=== PATIENT | male | born 1945 | race Caucasian/White ===

== ENCOUNTER 2018-10-16 11:52 | Inpatient (IN) | payer MEDICARE ==
[~2018-10-16] VITALS: Ht 177.8 cm; Wt 77.1 kg
[2018-10-16] MEDS: SODIUM CHLORIDE 0.9% 1000ML 1,000 ML IV SCH ×2 (00:12→18:03)
[2018-10-16] MEDS ORDERED: SODIUM CHLORIDE 0.9% 1000ML 2,000 ML ONE (12:11)
[2018-10-16] MEDS ORDERED: SODIUM CHLORIDE 0.9% 1000ML 1,000 ML IV STA (12:27)
[2018-10-16] MEDS ORDERED: SODIUM CHLORIDE 0.9% 1000ML 1,000 ML IV ONE ×2 (12:30)
[2018-10-16 12:43] LABS: BASOPHILS # (AUTO) 0.1 (0.0-0.1); BASOPHILS % 0.2 % (0.0-1.0); EOSINOPHILS # (AUTO) 0.1 (0.0-0.4); EOSINOPHILS % 0.1 % (0.0-6.0); HEMATOCRIT 39.3 % (38.2-49.6); LYMPHOCYTES # (AUTO) 8.6 (1.0-3.2); LYMPHOCYTES % 22.1 % (18.0-39.1); MEAN CORPUSCULAR HEMOGLOBIN 30.7 pg (28-32); MEAN CORPUSCULAR HGB CONC 33.1 g/dL (31-35); MEAN CORPUSCULAR VOLUME 92.9 fL (81-99); MONOCYTES # (AUTO) 14.8 (0.2-0.8); MONOCYTES % 38.1 % (4.4-11.3); NEUTROPHILS # (AUTO) 14.4 (2.1-6.9); NEUTROPHILS % 37.1 % (38.7-80.0); PLATELET COUNT 226 x10e3/uL (140-360); RED BLOOD COUNT 4.23 x10e6/uL (4.3-5.7); RED CELL DISTRIBUTION WIDTH 17.7 % (11.7-14.4)
--- NOTE | 2018-10-16 12:45 | Diagnostic Imaging Report ---
EXAMINATION: CHEST SINGLE (PORTABLE) INDICATION: Altered mental status, fever. COMPARISON: None FINDINGS: The right lung apex is obscured by EKG lead. TUBES and LINES: None. LUNGS: Low lung volumes. There are patchy opacities in the right lower lung. No evidence of pulmonary edema. PLEURA: No pleural effusion or pneumothorax. HEART AND MEDIASTINUM: The cardiomediastinal silhouette is unremarkable. BONES AND SOFT TISSUES: No acute osseous lesion. Soft tissues are unremarkable. UPPER ABDOMEN: No free air under the diaphragm. IMPRESSION: Low lung volumes with patchy right basilar opacity, which may reflect atelectasis or aspiration in the appropriate clinical setting. Recommend follow-up chest radiograph in 6-8 weeks to assess for resolution. Signed by: Dr. Quita Jordan MD on 10/16/2018 12:42 PM
[2018-10-16 12:52] LABS: INR 1.03
[2018-10-16 12:53] LABS: PARTIAL THROMBOPLASTIN TIME 27.2 seconds (23.8-35.5)
[2018-10-16 13:00] LABS: ALBUMIN 3.7 g/dL (3.5-5.0); ALBUMIN/GLOBULIN RATIO 0.8 (0.8-2.0); ANION GAP 15.6 mmol/L (8-16); CALCIUM 10.2 mg/dL (8.4-10.2); CREATININE, SERUM 1.52 mg/dL (0.72-1.25); POTASSIUM 3.6 mmol/L (3.5-5.1)
[2018-10-16] MEDS ORDERED: VANCOMYCIN 1GM/NS 250 ML 250 ML IV ONE (13:00)
[2018-10-16 13:06] LABS: CREATINE KINASE MB 1.5 ng/mL (0-5.0)
[2018-10-16] MEDS ORDERED: LIDOCAINE JELLY 2% 10ML URO-JET ONE (13:15)
[2018-10-16 13:30] LABS: ACETAMINOPHEN < 3 ug/mL (10-30); SALICYLATE < 5.0 mg/dL (0-30)
[2018-10-16] MEDS: PIPER-TAZ 3.375 GM 50 ML IV SCH ×2 (13:41→18:03)
[2018-10-16 14:29] LABS: STREPTOCOCCUS GRP A ANTIGEN POSITIVE (NEGATIVE)
[2018-10-16 14:29] LABS: BILIRUBIN,URINE NEGATIVE (NEGATIVE); CLARITY,URINE HAZY (CLEAR); COLOR,URINE YELLOW (YELLOW); KETONES,URINE NEGATIVE (NEGATIVE); LEUKOCYTE ESTERASE ,URINE NEGATIVE (NEGATIVE); NITRITE,URINE NEGATIVE (NEGATIVE); PROTEIN,URINE DIPSTICK 2+ (NEGATIVE); URINE UROBILINOGEN 0.2 mg/dL (0.2 - 1)
[2018-10-16 14:31] LABS: AMPHETAMINES SCREEN,URINE NEGATIVE (NEGATIVE); BENZODIAZEPINES SCREEN,URINE POSITIVE (NEGATIVE); PHENCYCLIDINE SCREEN,URINE NEGATIVE (NEGATIVE)
[2018-10-16] MEDS: LEVOFLOXACIN 500MG/D5W 100ML 100 ML IV SCH (14:38)
[2018-10-16 14:42] LABS: INFLUENZAE A&B ANTIGEN (RAPID) NEGATIVE (NEGATIVE)
[2018-10-16] MEDS ORDERED: TUBERCULIN, PPD INJ 5 TU/0.1 ML INJ ID ONE (14:45)
[2018-10-16 14:47] LABS: AMORPHOUS SEDIMENT,URINE MANY (FEW); BACTERIA,URINE MODERATE /HPF; EPITHELIAL CELLS,URINE MODERATE /LPF
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
[2018-10-16] MEDS ORDERED: LORAZEPAM0.5 MG PO (15:04)
[2018-10-16] MEDS ORDERED: QUETIAPINE FUMA50 MG PO (15:04)
[2018-10-16] MEDS ORDERED: VALPROIC A250 MG/5 M PO (15:04)
--- NOTE | 2018-10-16 15:25 | NUR ---
Dr. Frank states patient may go to med surg tele at this time.
[2018-10-16 16:00] VITALS: BP 112/61
--- NOTE | 2018-10-16 16:07 | NUR ---
RECEIVED PT FROM ER. JESSICA. BED AT LOWEST POSITION. BED ALARM IS ON. PT IS CONFUSED AND YELLING. CALL LIGHT WITH IN REACH.
[2018-10-16 16:47] VITALS: BP 112/61
[2018-10-16] MEDS: VALPROATE 250MG/5ML ORAL LIQ 5ml PO SCH ×2 (18:03→22:40)
--- NOTE | 2018-10-16 19:00 | NUR ---
BEDSIDE SHIFT REPORT GIVEN TO INSTRUCTIONAL ASSISTANT RN.
--- NOTE | 2018-10-16 19:28 | NUR ---
Patient received asleep in bed. Arousable by tactile stimuli. No signs of pain or respiratory distress. Fall precautions implemented. Call light within reach.
[2018-10-16 20:00] VITALS: BP 103/58
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
[2018-10-16 21:46] LABS: CREATINE KINASE MB 2.8 ng/mL (0-5.0)
[2018-10-16 23:43] VITALS: BP 116/67
[2018-10-17] VITALS (7 sets, daily range): BP systolic 113–125; BP diastolic 65–71
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
[2018-10-17] MEDS: PIPER-TAZ 3.375 GM 50 ML IV SCH ×4 (00:12→17:05)
[2018-10-17] MEDS ORDERED: TUBERCULIN, PPD INJ 5 TU/0.1 ML INJ ID ONE (04:08)
--- NOTE | 2018-10-17 04:30 | NUR ---
Patient was agitated and combative upon attempting to give Tuberculin PPD injection. Two attempts proved futile.
[2018-10-17] MEDS: SODIUM CHLORIDE 0.9% 1000ML 1,000 ML IV SCH ×2 (05:52→19:00)
--- NOTE | 2018-10-17 07:06 | NUR ---
RECEIVED PATIENT RESTING IN BED. NO ACUTE DISTRESS NOTED. NO S/S OF PAIN NOTED. CALL LIGHT WITHIN REACH. BED IN THE LOWEST POSITION.
--- NOTE | 2018-10-17 07:08 | NUR ---
Walking rounds done. Shift report given to oncoming nurse regarding patient's status.
[2018-10-17] MEDS ORDERED: ACETAMINOPHEN325 M1 PO (07:22)
--- NOTE | 2018-10-17 07:29 | NUR ---
SPOKE TO DR. KHAN IN REGARDS TO NPO ORDER. PER MD LEAVE PATIENT NPO AND ORDER BEDSIDE SWALLOW EVAL AND CONTINUE IV FLUIDS.
[2018-10-17] MEDS: VALPROATE 250MG/5ML ORAL LIQ 5ml PO SCH ×3 (08:54→21:47)
[2018-10-17] MEDS: LEVOFLOXACIN 500MG/D5W 100ML 100 ML IV SCH (08:54)
[2018-10-17] MEDS ORDERED: LORAZEPAM 0.5 MG TAB PO PRN (10:45)
--- NOTE | 2018-10-17 10:59 | NUR ---
TB TEST ADMINISTERED AT THIS TIME TO LEFT FOREARM.
[2018-10-17] MEDS ORDERED: TUBERCULIN, PPD INJ 5 TU/0.1 ML INJ ID NR (11:00)
[2018-10-17 12:00] LABS: BASOPHILS % 0.1 % (0.0-1.0); EOSINOPHILS # (AUTO) 0.1 (0.0-0.4); EOSINOPHILS % 0.3 % (0.0-6.0); HEMOGLOBIN 11.4 g/dL (14.0-18.0); LYMPHOCYTES # (AUTO) 2.5 (1.0-3.2); LYMPHOCYTES % 8.3 % (18.0-39.1); MEAN CORPUSCULAR HEMOGLOBIN 30.6 pg (28-32); MEAN CORPUSCULAR HGB CONC 31.7 g/dL (31-35); MEAN CORPUSCULAR VOLUME 96.8 fL (81-99); MONOCYTES # (AUTO) 10.5 (0.2-0.8); MONOCYTES % 35.1 % (4.4-11.3); NEUTROPHILS # (AUTO) 16.1 (2.1-6.9); NEUTROPHILS % 53.8 % (38.7-80.0); PLATELET COUNT 218 x10e3/uL (140-360); RED BLOOD COUNT 3.72 x10e6/uL (4.3-5.7); RED CELL DISTRIBUTION WIDTH 17.6 % (11.7-14.4)
[2018-10-17 12:25] LABS: CREATINE KINASE MB 3.4 ng/mL (0-5.0)
[2018-10-17 13:00] LABS: ALANINE AMINOTRANSFERASE 14 IU/L (0-55); ALBUMIN 3.3 g/dL (3.5-5.0); ALBUMIN/GLOBULIN RATIO 0.8 (0.8-2.0); ALKALINE PHOSPHATASE 43 IU/L (40-150); ANION GAP 13.7 mmol/L (8-16); BLOOD UREA NITROGEN 13 mg/dL (7-26); BUN/CREATININE RATIO 13 (6-25); CALCIUM 8.6 mg/dL (8.4-10.2); CARBON DIOXIDE 22 mmol/L (22-29); CHLORIDE 109 mmol/L (98-107); CREATININE, SERUM 0.97 mg/dL (0.72-1.25); EST GLOMERULAR FILTRATION RATE > 60 ML/MIN (60-); GLUCOSE 91 mg/dL (74-118); POTASSIUM 3.7 mmol/L (3.5-5.1); SODIUM 141 mmol/L (136-145)
[2018-10-17] MEDS: QUETIAPINE FUMARATE 25 MG TAB PO SCH ×2 (14:01→21:47)
[2018-10-17 14:23] LABS: LYMPHOCYTES % (MANUAL) 16 % (19-48); MONOCYTES % (MANUAL) 26 % (3.4-9.0); NEUTROPHILS % (MANUAL) 58 % (40-74)
[2018-10-17 14:24] LABS: ANISOCYTOSIS S; PLATELET ESTIMATE ADEQUATE; PLATELET MORPHOLOGY COMMENT FEW LARGE; POIKILOCYTOSIS S; POLYCHROMASIA S; RBC MORPHOLOGY COMMENT ABNORMAL
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
[2018-10-17] MEDS: FAMOTIDINE 20 MG TAB PO SCH (17:05)
--- NOTE | 2018-10-17 19:00 | NUR ---
REPORT GIVEN TO ONCOMING NURSE, PATIENT IS RESTING IN BED. RESPIRATIONS EVEN AND UNLABORED, NO ACUTE DISTRESS NOTED. CALL LIGHT WITHIN REACH. BED IN THE LOWEST POSITION.
[2018-10-17] MEDS: HEPARIN SOD (PORCINE) 5,000 UNIT/ML VIAL SC SCH (21:47)
[2018-10-18] VITALS (9 sets, daily range): BP systolic 124–147; BP diastolic 65–87
[2018-10-18] MEDS: PIPER-TAZ 3.375 GM 50 ML IV SCH ×3 (00:45→11:20)
--- NOTE | 2018-10-18 04:59 | NUR ---
10/17/18 @ 1900 Received report at bed side from day nurse, patient is alert but confused, introduced self to patient and patient encouraged to call for help when needed with the call light, bed in lowest position and locked, needed items beside bed, patient is currently stable will continue to monitor. patient unable to see well so was rounded more frequent and was occasionally reoriented to his environment, including closeness of the call light, 2000: patient rounded and stable, 0000 patient rounded and stable 0200 patient rounded and stable 0400: patient rounded and stable.
--- NOTE | 2018-10-18 06:03 | Diagnostic Imaging Report ---
EXAMINATION: CHEST SINGLE (PORTABLE) INDICATION: ^pneumon ia ^[id number] ^[id number] COMPARISON: 10/16/2018 FINDINGS: AP view TUBES and LINES: Stable partially seen left FRUIT THINNER MACHINE OPERATOR shunt. LUNGS: Lungs are well inflated. Mild haziness of the medial right lower lung field. PLEURA: No pleural effusion or pneumothorax. HEART AND MEDIASTINUM: The cardiomediastinal silhouette is unremarkable. BONES AND SOFT TISSUES: No acute osseous lesion. Soft tissues are unremarkable. UPPER ABDOMEN: No free air under the diaphragm. IMPRESSION: Mild haziness of the medial right lower lung field, representing subsegmental atelectasis and/or developing pneumonia in the appropriate clinical context. Signed by: Dr. Bigg Soni MD on 10/18/2018 5:59 AM
[2018-10-18 06:26] LABS: BASOPHILS % 0.2 % (0.0-1.0); EOSINOPHILS # (AUTO) 0.1 (0.0-0.4); EOSINOPHILS % 0.3 % (0.0-6.0); HEMATOCRIT 33.2 % (38.2-49.6); HEMOGLOBIN 10.9 g/dL (14.0-18.0); LYMPHOCYTES # (AUTO) 2.9 (1.0-3.2); LYMPHOCYTES % 16.4 % (18.0-39.1); MEAN CORPUSCULAR HEMOGLOBIN 31.1 pg (28-32); MEAN CORPUSCULAR HGB CONC 32.8 g/dL (31-35); MEAN CORPUSCULAR VOLUME 94.6 fL (81-99); MONOCYTES % 28.4 % (4.4-11.3); NEUTROPHILS # (AUTO) 9.1 (2.1-6.9); NEUTROPHILS % 51.9 % (38.7-80.0); PLATELET COUNT 235 x10e3/uL (140-360); RED BLOOD COUNT 3.51 x10e6/uL (4.3-5.7); RED CELL DISTRIBUTION WIDTH 17.4 % (11.7-14.4)
[2018-10-18 06:44] LABS: ANION GAP 11.3 mmol/L (8-16); BLOOD UREA NITROGEN 8 mg/dL (7-26); BUN/CREATININE RATIO 9 (6-25); CALCIUM 8.3 mg/dL (8.4-10.2); CARBON DIOXIDE 24 mmol/L (22-29); CHLORIDE 109 mmol/L (98-107); CREATININE, SERUM 0.86 mg/dL (0.72-1.25); EST GLOMERULAR FILTRATION RATE > 60 ML/MIN (60-); GLUCOSE 76 mg/dL (74-118); POTASSIUM 3.3 mmol/L (3.5-5.1); SODIUM 141 mmol/L (136-145)
--- NOTE | 2018-10-18 06:58 | NUR ---
RECEIVED PATIENT RESTING IN BED. RESPIRATIONS EVEN AND UNLABORED, NO ACUTE DISTRESS NOTED. CALL LIGHT WITHIN REACH. BED IN THE LOWEST POSITION. BED ALARM ON.
[2018-10-18 07:14] LABS: ALANINE AMINOTRANSFERASE 12 IU/L (0-55); ALBUMIN 2.8 g/dL (3.5-5.0); ALBUMIN/GLOBULIN RATIO 0.7 (0.8-2.0); ALKALINE PHOSPHATASE 40 IU/L (40-150); ANION GAP 12.3 mmol/L (8-16); BLOOD UREA NITROGEN 9 mg/dL (7-26); BUN/CREATININE RATIO 10 (6-25); CALCIUM 8.3 mg/dL (8.4-10.2); CARBON DIOXIDE 23 mmol/L (22-29); CHLORIDE 109 mmol/L (98-107); CHOL/HDL RATIO 6.1 (3.9-4.7); CHOLESTEROL 116 MD/DL (0-199); CREATININE, SERUM 0.87 mg/dL (0.72-1.25); EST GLOMERULAR FILTRATION RATE > 60 ML/MIN (60-); GLUCOSE 79 mg/dL (74-118); HDL CHOLESTEROL 19 MG/DL (40-60); LDL CHOLESTEROL 74 MG/DL (60-130); POTASSIUM 3.3 mmol/L (3.5-5.1); SODIUM 141 mmol/L (136-145); TRIGLYCERIDES 116 MG/DL (0-149)
--- NOTE | 2018-10-18 07:17 | NUR ---
patient endorsed to next shift for continuity of care.
[2018-10-18 07:34] LABS: THYROID STIMULATING HORMONE 1.616 uIU/mL (0.350-4.940)
[2018-10-18] MEDS: VALPROATE 250MG/5ML ORAL LIQ 5ml PO SCH ×3 (08:43→20:49)
[2018-10-18] MEDS: FAMOTIDINE 20 MG TAB PO SCH ×2 (08:43→15:45)
[2018-10-18] MEDS: QUETIAPINE FUMARATE 25 MG TAB PO SCH ×3 (08:43→20:49)
[2018-10-18] MEDS: LEVOFLOXACIN 500MG/D5W 100ML 100 ML IV SCH (08:43)
[2018-10-18] MEDS: HEPARIN SOD (PORCINE) 5,000 UNIT/ML VIAL SC SCH ×2 (08:45→20:45)
--- NOTE | 2018-10-18 10:30 | NUR ---
DR. KHAN IN TO SEE PATIENT, NOTIFIED OF POTASSIUM OF 3.3 AND CALCIUM OF 8.3, PER MD HE WILL TAKE CARE OF IT.
[2018-10-18] MEDS ORDERED: POTASSIUM CHLORIDE 10MEQ EA PO NR (11:15)
--- NOTE | 2018-10-18 11:52 | NUR ---
NOTIFIED DR. KHAN OF RASH ON GROIN, LEFT LATERAL ABDOMEN AND CHEEKS. PER MD THONY BARRETT.
[2018-10-18] MEDS: VANCOMYCIN 1GM/NS 250 ML 250 ML IV SCH (11:58)
[2018-10-18] MEDS: LEVALBUTEROL HCL SOLN NEBU 1.25 MG/3 ML NEB INH SCH ×2 (13:15→19:18)
--- NOTE | 2018-10-18 13:43 | Diagnostic Imaging Report ---
Exam: Abdominal film Clinical History: Abdominal tenderness Comparison: None. DISCUSSION: Frontal view of the abdomen shows a nonobstructive bowel gas pattern with mild amount of retained stool.There are no dilated, air-filled loops of bowel. There are no abnormal calcifications. A radiopaque catheter projects in the left upper quadrant, crosses to the right mid abdomen at the level of L2. Distal tip projects over the right iliac crest. Pelvic phleboliths. No acute bony abnormalities. Mild degenerative changes in bilateral hip joints. No lytic lesions. IMPRESSION: 1. Nonobstructive bowel gas pattern. The staff physician below has personally reviewed this exam on the date of dictation. Signed by: Dr. Reinier Shields M.D. on 10/18/2018 1:40 PM
[2018-10-18 14:16] LABS: EOSINOPHILS % (MANUAL) 1 % (0-7); LYMPHOCYTES % (MANUAL) 18 % (19-48); MONOCYTES % (MANUAL) 31 % (3.4-9.0)
[2018-10-18 14:17] LABS: LARGE PLATELETS FEW; NEUTROPHILS % (MANUAL) 50 % (40-74); PLATELET ESTIMATE ADEQUATE; PLATELET MORPHOLOGY COMMENT NORMAL
[2018-10-18 14:18] LABS: RBC MORPHOLOGY COMMENT NORMAL
[2018-10-18] MEDS: SODIUM CHLORIDE 0.9% 1000ML 1,000 ML IV SCH (18:04)
--- NOTE | 2018-10-18 19:00 | NUR ---
REPORT GIVEN TO ONCOMING NURSE. PATIENT IS RESTING IN BED. NO S/S OF PAIN NOTED. CALL LIGHT WITHIN REACH. BED IN THE LOWEST POSITION.
[2018-10-19] VITALS (8 sets, daily range): BP systolic 136–161; BP diastolic 58–88
[2018-10-19] MEDS: LEVALBUTEROL HCL SOLN NEBU 1.25 MG/3 ML NEB INH SCH ×4 (00:10→19:30)
[2018-10-19] MEDS: VALPROATE 250MG/5ML ORAL LIQ 5ml PO SCH ×3 (09:02→22:30)
[2018-10-19] MEDS: QUETIAPINE FUMARATE 25 MG TAB PO SCH ×3 (09:02→22:30)
[2018-10-19] MEDS: LEVOFLOXACIN 500MG/D5W 100ML 100 ML IV SCH (09:02)
[2018-10-19] MEDS: HEPARIN SOD (PORCINE) 5,000 UNIT/ML VIAL SC SCH ×2 (09:02→22:30)
[2018-10-19] MEDS: FAMOTIDINE 20 MG TAB PO SCH ×2 (09:02→16:24)
[2018-10-19] MEDS: SODIUM CHLORIDE 0.9% 1000ML 1,000 ML IV SCH (10:32)
[2018-10-19] MEDS: VANCOMYCIN 1GM/NS 250 ML 250 ML IV SCH ×2 (11:30→23:37)
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
--- NOTE | 2018-10-19 13:49 | NUR ---
PT IS FROM [facility]
--- NOTE | 2018-10-19 15:30 | Diagnostic Imaging Report ---
EXAM: Modified barium swallow with Speech Pathologist INDICATION: ^per speech therapy ^[id number] ^1140 COMPARISON: None available. RADIATION DOSE: Fluoroscopy Time: 3.1 min Dose (Kerma) Area Product: 1.52 Gycm2 Air Kerma (AK) value has been reviewed. It is below the limits set by the Radiation Protocol Committee (RPC) committee. FINDINGS: See impression. IMPRESSION: Laryngeal penetration was noted with thin liquid administration. No tracheal aspiration was witnessed. Refer to speech pathology report for details and recommendations. Signed by: Dr. Bienvenido Alonzo M.D. on 10/19/2018 3:27 PM
[2018-10-19] MEDS: LANOLIN 4.5 OZ OINT TP SCH (15:52)
--- NOTE | 2018-10-19 16:24 | NUR ---
Attempted to remove patient's PIV in the left hand. Three times the patient became angry and made motions as if he was going hit me. He then told me "NO!". I left the PIV in place.
--- NOTE | 2018-10-19 16:48 | NUR ---
Dr. Mendez in to see the patient. New orders received for PICC line if unable to successfully place a PIV. Orders also received to give Vancomycin dose from 10/19/18 and retime the next dose for 10/20/18. Also draw the vanc trough before the third dose which should be 10/20/18.
[2018-10-19] MEDS ORDERED: BISMUTH SUBSALICYLATE 262 MG/15 ML 8OZ BTL PO PRN (17:45)
--- NOTE | 2018-10-19 19:28 | NUR ---
Patient received asleep in bed. Arousable by tactile stimuli. No signs of pain, discomfort or respiratory distress. Fall precautions in place. Call light within reach.
--- NOTE | 2018-10-19 21:15 | NUR ---
Attempt made by Charge Nurse (Natividad) to insert an IV was unsuccessful. Patient's next -of-kin (Augusto Parra) was notified about order for a PICC line and consent was received via telephone with Charge Nurse (Natividad) acting as a witness. The Radiology department notified about obtained consent for PICC line placement.
--- NOTE | 2018-10-19 21:25 | NUR ---
Patient vehemently refused removal of peripheral IV on left hand .
--- NOTE | 2018-10-19 22:07 | NUR ---
PICC line placement performed by Radiology.
--- NOTE | 2018-10-19 22:27 | Diagnostic Imaging Report ---
Examination: Single AP view of the chest. COMPARISON: 10/19/2018 INDICATION: Chest line placement DISCUSSION: Lines/tubes: Left PICC line with tip over the SVC. Visualized left ROLL FORMING SUPERVISOR shunt catheter. Lungs: Stable mild opacity in the right medial lower lung. Pleura: No pleural effusion or pneumothorax. Heart and mediastinum: The heart and the mediastinum are unremarkable. Bones and soft tissues: No acute bony abnormalities. IMPRESSION: 1. Left PICC line with tip overlying the SVC. Signed by: Dr. Terrell Erwin M.D. on 10/19/2018 10:24 PM
[2018-10-20] VITALS (9 sets, daily range): BP systolic 109–156; BP diastolic 66–84
[2018-10-20] MEDS: LANOLIN 4.5 OZ OINT TP SCH ×2 (00:45→13:58)
[2018-10-20] MEDS: LEVALBUTEROL HCL SOLN NEBU 1.25 MG/3 ML NEB INH SCH ×4 (00:56→20:16)
--- NOTE | 2018-10-20 05:15 | NUR ---
Lantiseptic cream applied to patient's perineum, bilateral groin and perirectal areas.
[2018-10-20 06:17] LABS: BASOPHILS # (AUTO) 0.1 (0.0-0.1); BASOPHILS % 0.5 % (0.0-1.0); EOSINOPHILS % 0.2 % (0.0-6.0); HEMATOCRIT 32.7 % (38.2-49.6); HEMOGLOBIN 10.9 g/dL (14.0-18.0); LYMPHOCYTES % 16.5 % (18.0-39.1); MEAN CORPUSCULAR HEMOGLOBIN 30.7 pg (28-32); MEAN CORPUSCULAR HGB CONC 33.3 g/dL (31-35); MEAN CORPUSCULAR VOLUME 92.1 fL (81-99); MONOCYTES # (AUTO) 3.2 (0.2-0.8); MONOCYTES % 25.8 % (4.4-11.3); NEUTROPHILS # (AUTO) 6.2 (2.1-6.9); NEUTROPHILS % 49.8 % (38.7-80.0); PLATELET COUNT 246 x10e3/uL (140-360); RED BLOOD COUNT 3.55 x10e6/uL (4.3-5.7); RED CELL DISTRIBUTION WIDTH 17.1 % (11.7-14.4)
[2018-10-20] MEDS: SODIUM CHLORIDE 0.9% 1000ML 1,000 ML IV SCH (06:32)
[2018-10-20 06:41] LABS: ANION GAP 11.1 mmol/L (8-16); BLOOD UREA NITROGEN < 5 mg/dL (7-26); CALCIUM 8.7 mg/dL (8.4-10.2); CARBON DIOXIDE 26 mmol/L (22-29); CHLORIDE 105 mmol/L (98-107); CREATININE, SERUM 0.75 mg/dL (0.72-1.25); EST GLOMERULAR FILTRATION RATE > 60 ML/MIN (60-); GLUCOSE 83 mg/dL (74-118); POTASSIUM 3.1 mmol/L (3.5-5.1); SODIUM 139 mmol/L (136-145)
[2018-10-20 06:44] LABS: BUN/CREATININE RATIO 7 (6-25)
[2018-10-20] MEDS: LEVOFLOXACIN 500MG/D5W 100ML 100 ML IV SCH (09:11)
[2018-10-20] MEDS: HEPARIN SOD (PORCINE) 5,000 UNIT/ML VIAL SC SCH ×2 (09:15→21:20)
[2018-10-20] MEDS: QUETIAPINE FUMARATE 25 MG TAB PO SCH ×3 (09:15→21:18)
[2018-10-20] MEDS: VALPROATE 250MG/5ML ORAL LIQ 5ml PO SCH ×3 (09:15→21:18)
[2018-10-20] MEDS: FAMOTIDINE 20 MG TAB PO SCH ×2 (09:15→16:47)
[2018-10-20] MEDS ORDERED: POTASSIUM CHLORIDE 20 MEQ TAB CR PO STA (09:35)
[2018-10-20 10:20] LABS: LYMPHOCYTES % (MANUAL) 23 % (19-48); MONOCYTES % (MANUAL) 28 % (3.4-9.0); NEUTROPHILS % (MANUAL) 49 % (40-74)
[2018-10-20 10:21] LABS: ANISOCYTOSIS MODERATE; POLYCHROMASIA FEW
[2018-10-20 10:22] LABS: OVALOCYTES FEW; PLATELET ESTIMATE ADEQUATE; PLATELET MORPHOLOGY COMMENT NORMAL; RBC MORPHOLOGY COMMENT ABNORMAL
--- NOTE | 2018-10-20 11:27 | NUR ---
CM SPOKE TO PATIENT NEXT OF KIN HOLLI MULLER [phone] REGARDING PATIENT DISCHARGE PLAN. PATIENT UNABLE TO MAKE DECISIONS. 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 HOLLI GIVEN CHOICES AND VERBALLY AGREED TO [facility]. CHOICE LETTER WITH DUAL SIGNATURES FROM CM AND YOLIE BROUSSARD THEN PLACED IN CHART. CLINICAL PICKED UP BY [facility] FRANCES SOLORZANO. PENDING INSURANCE AUTH TO [facility]. [facility] Address: [address], [place] [address] PENDING AUTH AND MOT FOR TRANSFER.
--- NOTE | 2018-10-20 12:14 | NUR ---
Spoke with Dr. Mendez concerning plan for patient. Dr. Lees gave orders to transfer patient back to [facility] under his care with IV antibiotics once accepted. Jeimy Brock CM aware.
--- NOTE | 2018-10-20 12:26 | NUR ---
YOLIE SPOKE TO BEDSIDE RN MIGUEL ANGEL IN ROUNDS. PATIENT FAMILY REQUESTING RETURN TO SNF FACILITY [facility] IF THEY ARE ABLE TO DO IV ABX THERAPY. BEDSIDE RN INFORMED THAT PATIENT CAN INDEED RECEIVE THE IV ABX AT THE SNF FACILITY. MIGUEL ANGEL CALLED DR. KHAN AND RECEIVED TELEPHONE ORDER TO CANCEL DEPOT MANAGER ACUTE CARE PLACEMENT AND INITIATE RETURN TO SNF. CRISTIANE, BOB INITIATING SNF AND [facility] FRANCES MILAN NOTIFIED TO CANCEL AUTH.
--- NOTE | 2018-10-20 12:53 | NUR ---
FAXED CLINICALS TO [facility] [phone], CALLED AND SPOKE WITH DEAN PT WILL CONTINUE UNDER DR KHAN CARE IN 5B WILL CALL NURSE WHEN GET AUTH TODAY
--- NOTE | 2018-10-20 13:08 | NUR ---
RTF COMPLETED AND GIVEN TO NURSE.
--- NOTE | 2018-10-20 13:47 | NUR ---
GOT AUTH FOR PT TO RETURN TO [facility] CALLED AND LET NURSE KNOW IT IS CLEAR TO CALL REPORT.
[2018-10-21] VITALS: BP 129/75
[2018-10-21] MEDS: VANCOMYCIN 1GM/NS 250 ML 250 ML IV SCH (00:05)
[2018-10-21] MEDS: LANOLIN 4.5 OZ OINT TP SCH (00:45)
[2018-10-21] MEDS: LEVALBUTEROL HCL SOLN NEBU 1.25 MG/3 ML NEB INH SCH ×2 (01:44→06:30)
[2018-10-21 04:00] VITALS: BP 141/71
[2018-10-21] MEDS: SODIUM CHLORIDE 0.9% 1000ML 1,000 ML IV SCH (06:30)
--- NOTE | 2018-10-21 07:00 | NUR ---
RECEIVED BEDSIDE REPORT FROM NIGHT RN. PT DENIES NEEDS AT THIS TIME.
[2018-10-21 09:00] VITALS: BP 137/84
[2018-10-21 09:42] VITALS: BP 137/84
[2018-10-21] MEDS: QUETIAPINE FUMARATE 25 MG TAB PO SCH (09:48)
[2018-10-21] MEDS: FAMOTIDINE 20 MG TAB PO SCH (09:48)
[2018-10-21] MEDS: VALPROATE 250MG/5ML ORAL LIQ 5ml PO SCH (10:06)
[2018-10-21] MEDS: LEVOFLOXACIN 500MG/D5W 100ML 100 ML IV SCH (10:11)
[2018-10-21] MEDS: HEPARIN SOD (PORCINE) 5,000 UNIT/ML VIAL SC SCH (10:16)
[2018-10-21 12:47] VITALS: BP 131/90
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
[2018-10-22] MEDS ORDERED: LEVOFLOXACIN 500MG/D5W 100ML 100 ML IV SCH (09:00)
== END 2018-10-21 12:40 | DRG 871 ==
LOC: ER 11:52 → ERHOLD 14:11 → MED/SURG2 16:04
PROVIDERS: ADMIT Internal Medicine; ATTEND Internal Medicine
PROC: 02HV33Z Insertion of Infusion Device into Superior Vena Cava, Percutaneous Approach (ICD-10-PCS; principal; 2018-10-19)
DX: A41.9 Sepsis, unspecified organism (principal); J96.90 Respiratory failure, unspecified, unspecified whether with hypoxia or hypercapnia; R65.21 Severe sepsis with septic shock; J69.0 Pneumonitis due to inhalation of food and vomit; J15.9 Unspecified bacterial pneumonia; N17.9 Acute kidney failure, unspecified; J44.0 Chronic obstructive pulmonary disease with (acute) lower respiratory infection; J44.1 Chronic obstructive pulmonary disease with (acute) exacerbation; H54.3 Unqualified visual loss, both eyes; S05.90XS Unspecified injury of unspecified eye and orbit, sequela; X95.9XXS Assault by unspecified firearm discharge, sequela; F29 Unspecified psychosis not due to a substance or known physiological condition; E78.5 Hyperlipidemia, unspecified; Z66 Do not resuscitate; D72.823 Leukemoid reaction; F20.9 Schizophrenia, unspecified; F32.9 Major depressive disorder, single episode, unspecified; G40.909 Epilepsy, unspecified, not intractable, without status epilepticus; K21.9 Gastro-esophageal reflux disease without esophagitis; F41.9 Anxiety disorder, unspecified; Z79.899 Other long term (current) drug therapy; J44.9 Chronic obstructive pulmonary disease, unspecified; B95.0 Streptococcus, group A, as the cause of diseases classified elsewhere; I51.7 Cardiomegaly
CPT/HCPCS: 36415; 36569; 70450; 71045; 74018; 74230; 80048; 80053; 80061; 80202; 80307; 80320; 80329; 81001; 82140; 82550; 82553; 83518; 83605; 83690; 83735; 83880; 84443; 84484; 85025; 85610; 85730; 87040; 87400; 87493; 93005; 93306; 94640; 97139; 99285; J1644; J1956; J2543; J3370; J7030

== ENCOUNTER 2018-10-27 11:49 | Inpatient (IN) | payer MEDICARE, OTHER ==
[~2018-10-27] VITALS: Ht 177.8 cm; Wt 77.1 kg
[~2018-10-27 11:49] MED LIST: ACETAMINOPHEN325 M1 PO; LORAZEPAM0.5 MG PO; QUETIAPINE FUMA50 MG PO; VALPROIC A250 MG/5 M PO
[2018-10-27] MEDS ORDERED: ACETAMINOPHEN 325 MG TAB PO STA (12:41)
[2018-10-27 12:52] LABS: BASOPHILS # (AUTO) 0.1 (0.0-0.1); BASOPHILS % 0.5 % (0.0-1.0); HEMATOCRIT 32.2 % (38.2-49.6); HEMOGLOBIN 10.9 g/dL (14.0-18.0); LYMPHOCYTES # (AUTO) 4.4 (1.0-3.2); LYMPHOCYTES % 17.4 % (18.0-39.1); MEAN CORPUSCULAR HEMOGLOBIN 31.5 pg (28-32); MEAN CORPUSCULAR HGB CONC 33.9 g/dL (31-35); MEAN CORPUSCULAR VOLUME 93.1 fL (81-99); MONOCYTES # (AUTO) 5.9 (0.2-0.8); MONOCYTES % 23.2 % (4.4-11.3); NEUTROPHILS # (AUTO) 12.1 (2.1-6.9); NEUTROPHILS % 47.9 % (38.7-80.0); PLATELET COUNT 418 x10e3/uL (140-360); RED BLOOD COUNT 3.46 x10e6/uL (4.3-5.7); RED CELL DISTRIBUTION WIDTH 18.3 % (11.7-14.4)
[2018-10-27 12:57] LABS: BILIRUBIN,URINE NEGATIVE (NEGATIVE); CLARITY,URINE CLEAR (CLEAR); COLOR,URINE YELLOW (YELLOW); KETONES,URINE NEGATIVE (NEGATIVE); LEUKOCYTE ESTERASE ,URINE NEGATIVE (NEGATIVE); NITRITE,URINE NEGATIVE (NEGATIVE); PROTEIN,URINE DIPSTICK NEGATIVE (NEGATIVE); URINE UROBILINOGEN 0.2 mg/dL (0.2 - 1)
[2018-10-27] MEDS ORDERED: SODIUM CHLORIDE 0.9% 1000ML 1,000 ML ONE (13:08)
[2018-10-27 13:11] LABS: ALANINE AMINOTRANSFERASE 23 IU/L (0-55); ALBUMIN 3.4 g/dL (3.5-5.0); ALBUMIN/GLOBULIN RATIO 0.8 (0.8-2.0); ALKALINE PHOSPHATASE 48 IU/L (40-150); ANION GAP 11.7 mmol/L (8-16); BLOOD UREA NITROGEN 11 mg/dL (7-26); BUN/CREATININE RATIO 13 (6-25); CALCIUM 9.1 mg/dL (8.4-10.2); CARBON DIOXIDE 26 mmol/L (22-29); CHLORIDE 104 mmol/L (98-107); CREATININE, SERUM 0.83 mg/dL (0.72-1.25); EST GLOMERULAR FILTRATION RATE > 60 ML/MIN (60-); GLUCOSE 79 mg/dL (74-118); POTASSIUM 3.7 mmol/L (3.5-5.1); SODIUM 138 mmol/L (136-145)
[2018-10-27 13:12] LABS: AMORPHOUS SEDIMENT,URINE MODERATE (FEW); BACTERIA,URINE FEW /HPF; RBC,URINE 0-5 /HPF (0-5)
[2018-10-27] MEDS ORDERED: SODIUM CHLORIDE 0.9% 1000ML 1,000 ML IV ONE (13:15)
[2018-10-27 14:10] LABS: LYMPHOCYTES % (MANUAL) 36 % (19-48); MONOCYTES % (MANUAL) 18 % (3.4-9.0); NEUTROPHILS % (MANUAL) 46 % (40-74)
[2018-10-27 14:12] LABS: ANISOCYTOSIS SLIGHT; HYPOCHROMASIA SLIGHT; PLATELET ESTIMATE ADEQUATE; PLATELET MORPHOLOGY COMMENT FEW GIANT; RBC MORPHOLOGY COMMENT ABNORMAL
--- NOTE | 2018-10-27 14:28 | Diagnostic Imaging Report ---
Examination: Single AP view of the chest. COMPARISON: 10/19/2018 INDICATION: Sepsis DISCUSSION: Stable position of left upper extremity PICC, with the tip projecting over the low superior vena cava. LAST CLEANER shunt catheter partially visualized projecting over the left hemithorax. Lungs are well-inflated and without consolidation, pleural effusion, or pneumothorax. Cardiomediastinal contour and pulmonary vasculature are within normal limits for portable, AP technique. No acute osseous abnormality. IMPRESSION: 1. No acute cardiopulmonary abnormalities. Signed by: Dr. Bienvenido Alonzo M.D. on 10/27/2018 2:25 PM
--- NOTE | 2018-10-27 14:59 | NUR ---
Attempted to call consult to Dr. Sanabria at this time. No answer to provided number from [employer].
[2018-10-27] MEDS ORDERED: ONDANSETRON HCL INJ 2MG/ML 2ML 2 MG/ML VIAL IV PRN (15:00)
[2018-10-27] MEDS ORDERED: LORAZEPAM 0.5 MG TAB PO PRN (15:15)
[2018-10-27] MEDS: SODIUM CHLORIDE 0.9% 1000ML 1,000 ML IV SCH (15:35)
[2018-10-27 17:40] VITALS: BP 156/88
--- NOTE | 2018-10-27 17:40 | NUR ---
PATIENT RECEIVED FROM ER PER STRETCHER. ALERT AND VERBALLY RESPONSIVE. SKIN WARM AND DRY TO TOUCH, RESPIRATION EVEN AND UNLABORED. ABDOMEN SOFT AND NON DISTENDED. ASSISTED WITH DIAPER CHANGE, HAD A LARGE BM. REFUSED THE IV FLUID TO BE STARTED STATING "I DON'T WANT IT NOW". ALL PERSONAL ITEMS CLOSE TO PATIENT, PATIENT IS LEGALLY BLIND. PATIENT UNABLE TO TELL IF HE HAD RECEIVED HIS VACCINES. BED IN LOWER POSITION AND LOCKED. CALL LIGHT AT REACH, INSTRUCTED TO CALL FOR ASSISTANCE NEEDED WITH RETURN DEMONSTRATION. BED ALARM ACTIVATED.
[2018-10-27 17:41] VITALS: BP 156/88
[2018-10-27] MEDS ORDERED: TUBERCULIN, PPD INJ 5 TU/0.1 ML INJ ID NR (18:00)
[2018-10-27 19:29] VITALS: BP 131/63
--- NOTE | 2018-10-27 19:29 | NUR ---
PT IS RESTING IN BED. NO RESPIRATORY DISTRESS NOTED. BED IN THE LOWEST POSITION, LOCKED, AND CALL LIGHT WITHIN REACH. WILL CONTINUE TO MONITOR.
[2018-10-27 20:34] VITALS: BP 131/63
[2018-10-27] MEDS ORDERED: NON-FORMULARY MEDICATION (Quetiapine Fumarate 50 MG) PO SCH (21:00)
[2018-10-27] MEDS: QUETIAPINE FUMARATE 100 MG TAB PO SCH (21:00)
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
[2018-10-27 23:50] VITALS: BP 138/76
[2018-10-28] VITALS (7 sets, daily range): BP systolic 117–144; BP diastolic 65–82
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
[2018-10-28] MEDS: SODIUM CHLORIDE 0.9% 1000ML 1,000 ML IV SCH (06:16)
[2018-10-28 06:45] LABS: BASOPHILS # (AUTO) 0.2 (0.0-0.1); BASOPHILS % 0.7 % (0.0-1.0); EOSINOPHILS % 0.1 % (0.0-6.0); HEMATOCRIT 34.1 % (38.2-49.6); HEMOGLOBIN 11.1 g/dL (14.0-18.0); LYMPHOCYTES # (AUTO) 5.3 (1.0-3.2); LYMPHOCYTES % 18.6 % (18.0-39.1); MEAN CORPUSCULAR HEMOGLOBIN 30.7 pg (28-32); MEAN CORPUSCULAR HGB CONC 32.6 g/dL (31-35); MEAN CORPUSCULAR VOLUME 94.2 fL (81-99); MONOCYTES # (AUTO) 6.4 (0.2-0.8); MONOCYTES % 22.6 % (4.4-11.3); NEUTROPHILS # (AUTO) 13.7 (2.1-6.9); PLATELET COUNT 445 x10e3/uL (140-360); RED BLOOD COUNT 3.62 x10e6/uL (4.3-5.7); RED CELL DISTRIBUTION WIDTH 18.1 % (11.7-14.4)
--- NOTE | 2018-10-28 07:00 | NUR ---
RECEIVED PT RESTING IN BED EYES CLOSED RESPIRATIONS EVEN AND NON LABORED ON ROOM AIR. CALL LIGHT WITHIN REACH. BED LOCKED AND IN LOWEST POSITION. BED ALARM ON. WILL CONTINUE TO MONITOR.
[2018-10-28 07:18] LABS: ALANINE AMINOTRANSFERASE 22 IU/L (0-55); ALBUMIN 3.6 g/dL (3.5-5.0); ALBUMIN/GLOBULIN RATIO 0.9 (0.8-2.0); ALKALINE PHOSPHATASE 51 IU/L (40-150); ANION GAP 10.9 mmol/L (8-16); BLOOD UREA NITROGEN 9 mg/dL (7-26); BUN/CREATININE RATIO 11 (6-25); CARBON DIOXIDE 26 mmol/L (22-29); CHLORIDE 105 mmol/L (98-107); CREATININE, SERUM 0.82 mg/dL (0.72-1.25); EST GLOMERULAR FILTRATION RATE > 60 ML/MIN (60-); GLUCOSE 80 mg/dL (74-118); POTASSIUM 3.9 mmol/L (3.5-5.1); SODIUM 138 mmol/L (136-145)
--- NOTE | 2018-10-28 08:51 | NUR ---
LEFT MESSAGE FOR DR. PHILIP TO NOTIFY REGARDING BLOOD CULTURE RESULTS. AWAITING CALL BACK.
[2018-10-28] MEDS: QUETIAPINE FUMARATE 100 MG TAB PO SCH ×3 (08:53→21:44)
--- NOTE | 2018-10-28 09:04 | NUR ---
RECEIVED CALL BACK FROM DR. PHILIP RECEIVED ORDERS FOR VANCOMYCIN 1GM X1 AND STATES HE WILL SEE PT LATER TODAY.
[2018-10-28] MEDS ORDERED: VANCOMYCIN 1GM/NS 250 ML 250 ML IV STA (09:05)
--- NOTE | 2018-10-28 09:18 | NUR ---
SPOKE WITH DR. KHAN TO CLARIFY ORDERS FOR NPO. PT HAD SPEECH EVAL EARLIER THIS MONTH DURING PREVIOUS ADMISSION AND THEY RECOMMENDED NECTAR THICK LIQUIDS. STATES TO AWAIT ANOTHER SPEECH EVAL ORDERED YESTERDAY, CHANGE IV FLUIDS TO D5 1/2NS 75 ML/HR. ALSO NOTIFIED IT DOES NOT LOOK LIKE TB TEST WAS DONE, IT WAS NOT DOCUMENTED GIVEN. STATES IF PT RECEIVED IT LAST ADMISSION IT DOES NOT NEED TO BE DONE AGAIN. PT DOES NOT NEED TO BE ON ISOLATION WHILE WE WAIT FOR RESULTS.
--- NOTE | 2018-10-28 09:22 | NUR ---
IN LAST VISIT RECORDS FOUND THAT TB TEST WAS ADMINISTERED ON 10/17/18.
[2018-10-28] MEDS: DEXTROSE 5%/0.45% SOD CHL 1,000 ML IV SCH (09:32)
--- NOTE | 2018-10-28 10:45 | NUR ---
SPOKE WITH SPEECH THERAPIST REGARDING EVAL ORDER STATES SHE WILL SEE PT IN APPROX 30 MIN.
--- NOTE | 2018-10-28 11:57 | NUR ---
LEFT MESSAGE FOR DR. KHAN TO NOTIFY REGARDING SPEECH EVAL COMPLETION. CALLING FOR DIET ORDER. AWAITING CALL BACK.
--- NOTE | 2018-10-28 12:02 | NUR ---
RECEIVED CALL BACK FROM DR. KHAN DIET ORDERS RECEIVED. SPOKE TO DR. PHILIP REGARDING POSSIBLE D/C OF PICC LINE DUE TO POSITIVE BLOOD CULTURES. STATES AWAIT FINAL CULTURE RESULTS, PT IS A HARD STICK AND NEEDS IV ACCESS FOR ANTIBIOTICS. PT WILL NEED NEW PICC BEFORE FRIDAY. FOR NOW LEAVE IN PLACE AND WAIT FOR FINAL CULTURE RESULTS.
[2018-10-28 13:42] LABS: BAND NEUTROPHILS % (MANUAL) 2 %; LYMPHOCYTES % (MANUAL) 17 % (19-48); MONOCYTES % (MANUAL) 17 % (3.4-9.0); NEUTROPHILS % (MANUAL) 63 % (40-74)
[2018-10-28 13:43] LABS: ANISOCYTOSIS SLIGHT; HYPOCHROMASIA SLIGHT; POIKILOCYTOSIS SLIGHT
[2018-10-28 13:44] LABS: PLATELET ESTIMATE SLIGHTLY INCREASED; RBC MORPHOLOGY COMMENT ABNORMAL
[2018-10-28 13:45] LABS: PLATELET MORPHOLOGY COMMENT NORMAL
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
--- NOTE | 2018-10-28 19:00 | NUR ---
Completed bedside rounds with morning nurse. Pt alert and orient to name. On stretcher to Radiology for CT abd/pelvis.
[2018-10-28] MEDS: VANCOMYCIN 1GM/NS 250 ML 250 ML IV SCH (21:45)
[2018-10-28] MEDS ORDERED: IOPAMIDOL 370 MG/ML 200 ML INFUS..BTL INJ ONE (21:58)
[2018-10-28] MEDS ORDERED: SODIUM CHLORIDE 0.9% 50ML 50 ML ONE (21:58)
[2018-10-29] VITALS (7 sets, daily range): BP systolic 109–138; BP diastolic 61–83
--- NOTE | 2018-10-29 03:13 | Diagnostic Imaging Report ---
EXAMINATION: CT of the abdomen and pelvis with contrast. TECHNIQUE: Spiral CT images of the abdomen and pelvis were performed from the lung bases to the lesser trochanters after the intravenous administration of 100 cc of Isovue-370 and the oral administration of water. Coronal and sagittal reformatted images were obtained. COMPARISON: None. CLINICAL HISTORY:Leukocytosis, sepsis DISCUSSION: ABDOMEN/PELVIS: LINES AND TUBES: Radiopaque catheter courses through the subcutaneous soft tissues of the anterior left lower chest and abdomen, enters the peritoneum at the level of the kidneys, with distal tip in the right lower quadrant/right pelvis, likely representing a DEPUTY REGISTER OF DEEDS shunt LOWER THORAX:Trace right pleural effusion and associated posterior right lower lobe compressive atelectasis. Focal nodular groundglass opacity in the right middle lobe along the bronchovascular bundle (series 2, image 5). Focal subpleural atelectatic changes versus scarring in the anterior right middle lobe (series 2, image 11 and sagittal image 39). Fat-containing posteromedial left diaphragmatic hernia (series 2, image 21 and sagittal image 81) HEPATOBILIARY: No focal hepatic lesions. No intra or extrahepatic biliary ductal dilation. GALLBLADDER: No radio-opaque stones or sludge. No wall thickening. SPLEEN: No splenomegaly. PANCREAS: No focal masses or ductal dilatation. ADRENALS: No adrenal nodules. KIDNEYS/URETERS: No hydronephrosis, stones, or solid mass lesions. * 1.5 cm fluid density simple cyst in the right superior pole (series 2, image 26). * Partially exophytic 1.7 cm hypodense lesion in the posterior interpolar right kidney (series 2, image 36), which measures 27 HU. * 2.6 cm partially exophytic lesion in the left superior to mid aspect (series 2, image 26), which measures 51 HU. * Partially exophytic 1.8 cm hypodense lesion in the anterior mid to inferior left kidney (series 2, image 37) disease, which measures 49 HU. * Bilateral subcentimeter hypodense lesions which are too small to characterize PELVIC ORGANS/BLADDER: Moderate circumferential bladder wall thickening, worse in the superior and posterior lateral villarreal. Likely bladder diverticulum at the anterior superior aspect (sagittal image 63). Several punctate calcifications are noted in the posterior bladder wall (series 2, image 77). Prostate measures approximately 4.1 x 3.8 x 4.8 cm (estimated volume 39 cc). PERITONEUM/RETROPERITONEUM: No free air or fluid. LYMPH NODES: No intra-abdominal, retroperitoneal, pelvic or inguinal lymphadenopathy. VESSELS: Common origin of the celiac trunk and SMA. Celiac trunk,superior and inferior mesenteric and bilateral renal arteries are patent The portal, superior mesenteric and splenic veins are patent. GI TRACT: No bowel dilation or evidence of obstruction. No pericolonic inflammatory changes. Appendix is well identified and normal in caliber. Scattered diverticula are noted in the colon, without diverticulitis. BONES AND SOFT TISSUE: No aggressive lytic lesions. Degenerative disc changes in the lumbar spine, worse at L2-L3. No soft tissue abnormalities. IMPRESSION: 1. No definite acute abdominopelvic abnormalities. No intra-abdominal abscess is identified. 2. Focal nodular glass opacity in the right middle lobe along the bronchovascular bundle, which may represent focal infection versus scarring. 3. Trace right pleural effusion and associated posterior right lower lobe compressive atelectasis. 4. Moderate circumferential bladder wall thickening, worse in the superior and posterior lateral villarreal. Although cystitis is a consideration, direct visualization with endoscopy is recommended given the asymmetric nature of the finding, to exclude neoplasm. Sequela of bladder outlet obstruction secondary to mild prostatomegaly is noted less likely consideration. 5. Multiple hypodense lesions in bilateral kidneys, which do not measure simple fluid, and may represent hemorrhagic/proteinaceous cyst, however, cannot be fully evaluated on this exam. Recommend CT abdomen with renal mass protocol for further evaluation, when clinically feasible. Signed by: Dr. Reinier Shields M.D. on 10/29/2018 3:09 AM
[2018-10-29] MEDS: DEXTROSE 5%/0.45% SOD CHL 1,000 ML IV SCH ×2 (06:00→11:55)
--- NOTE | 2018-10-29 06:58 | NUR ---
Pt lying in bed HOB 30 degrees. Denies pain at this time. No distress noted.
--- NOTE | 2018-10-29 07:14 | NUR ---
pt alert resp even, and unlabored at this time, eyes closed no distress noted pt able to make needs known when asked, no c/o pain when asked, call light in reach.
[2018-10-29] MEDS: VANCOMYCIN 1GM/NS 250 ML 250 ML IV SCH ×2 (08:51→21:38)
[2018-10-29] MEDS: QUETIAPINE FUMARATE 100 MG TAB PO SCH ×3 (08:51→21:38)
--- NOTE | 2018-10-29 13:34 | NUR ---
WOUND CARE CONSULTATION:INITIAL EVALUATION Patient admitted from group home for leukocytosis. WBC28.43 trending up HGB11.1 HCT34.1 NEUT%48 ALB3.6 WC Consulted for evaluation of sacral wound present on admission PATIENT VISIT: Patient calm cooperative and follows direction well. Diapered HOB 45 degrees. Moderate PUP Active Alternating Pressure Air Mattress in Place and set to patient current weight. Jose Score 15 Patient able to turn self. States to be having loose stools. Presents with non blanchable redness to sacral area, linear at midgluteal fold. Tenderness upon touch. IMPRESSION: Sacral - Stage I - Pressure Ulcer - Present On Admission RECOMMENDATION: 1. Sacral - Stage I- Pressure Ulcer - POA - Wash area with Mild Soap and Water then pat dry thoroughly q12h and PRN Soiling. - Apply [place] cream q12h and PRN Soiling then Cover with Allevyn Foam Sacrum Dressing Daily 2. Turn and Reposition every 2 hours using turning clock schedule. 3. Continue Moderate PUP 4. Offload Heels with Pillows/ Bilateral Heel Protectors while in bed. 5. Encourage OOB activity. Thank you for consulting with Wound Care. Addendum: 10/29/18 at 1340 by Benitez Capps RN Amended: Links added.
--- NOTE | 2018-10-29 16:36 | NUR ---
SPOKE W BEDSIDE NURSECHIDI FOR INPT ORDER; PT MEETS. STATED SHE WILL CALL DR. KHAN FOR INPT ORDER. LEFT NOTE ON FRONT OF THE PT'S CHART REQUESTING INPT ORDER ALSO.
--- NOTE | 2018-10-29 19:20 | Diagnostic Imaging Report ---
A single frontal view of the chest. HISTORY: PICC line placement, leukocytosis COMPARISON: Chest radiograph 10/27/2018. DISCUSSION: Portable technique, limits sensitivity of the exam. Tubes/Lines: Unchanged appearance of the visualized portion of the presumed left ventriculoperitoneal shunt catheter. Left approach PICC line, the tip projects in the region of the superior vena cava. Lungs and pleura: The lungs are well inflated. No evidence of a consolidative pneumonia or pulmonary alveolar edema. No definite pleural effusion or pneumothorax is identified. Heart and mediastinum: The cardiomediastinal silhouette appears unremarkable. Bones and soft tissues: Appear unremarkable, given this limited exam. IMPRESSION: 1. No acute radiographic abnormality. 2. Left upper extremity PICC line. Signed by: Dr. Lyle Jacobs D.O., M.M.M. on 10/29/2018 7:17 PM
--- NOTE | 2018-10-29 19:23 | NUR ---
report given to oncoming nurse, for continued care
[2018-10-29] MEDS: ZINC OXIDE / BALSAM PERU 30 GM TUBE TOP SCH (21:38)
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
[2018-10-30] VITALS (8 sets, daily range): BP systolic 119–132; BP diastolic 58–75
[2018-10-30] MEDS: DEXTROSE 5%/0.45% SOD CHL 1,000 ML IV SCH ×2 (03:00→17:33)
[2018-10-30 05:50] LABS: BASOPHILS # (AUTO) 0.1 (0.0-0.1); BASOPHILS % 0.4 % (0.0-1.0); EOSINOPHILS # (AUTO) 0.1 (0.0-0.4); EOSINOPHILS % 0.4 % (0.0-6.0); HEMATOCRIT 32.1 % (38.2-49.6); HEMOGLOBIN 10.5 g/dL (14.0-18.0); LYMPHOCYTES # (AUTO) 3.6 (1.0-3.2); LYMPHOCYTES % 19.2 % (18.0-39.1); MEAN CORPUSCULAR HEMOGLOBIN 30.1 pg (28-32); MEAN CORPUSCULAR HGB CONC 32.7 g/dL (31-35); MONOCYTES # (AUTO) 4.6 (0.2-0.8); MONOCYTES % 24.6 % (4.4-11.3); NEUTROPHILS # (AUTO) 9.1 (2.1-6.9); NEUTROPHILS % 49.1 % (38.7-80.0); PLATELET COUNT 354 x10e3/uL (140-360); RED BLOOD COUNT 3.49 x10e6/uL (4.3-5.7); RED CELL DISTRIBUTION WIDTH 18.4 % (11.7-14.4)
[2018-10-30 06:18] LABS: ANION GAP 10.4 mmol/L (8-16); BLOOD UREA NITROGEN 7 mg/dL (7-26); BUN/CREATININE RATIO 9 (6-25); CALCIUM 8.7 mg/dL (8.4-10.2); CARBON DIOXIDE 25 mmol/L (22-29); CHLORIDE 108 mmol/L (98-107); CREATININE, SERUM 0.82 mg/dL (0.72-1.25); EST GLOMERULAR FILTRATION RATE > 60 ML/MIN (60-); GLUCOSE 97 mg/dL (74-118); POTASSIUM 3.4 mmol/L (3.5-5.1); SODIUM 140 mmol/L (136-145)
--- NOTE | 2018-10-30 07:06 | NUR ---
RECEIVED PATIENT RESTING IN BED. NO ACUTE DISTRESS NOTED. NO S/S OF PAIN OR DISCOMFORT NOTED. CALL LIGHT WITHIN REACH. BED IN THE LOWEST POSITION. BED ALARM ON.
[2018-10-30] MEDS: QUETIAPINE FUMARATE 100 MG TAB PO SCH ×3 (08:57→21:00)
[2018-10-30] MEDS: ZINC OXIDE / BALSAM PERU 30 GM TUBE TOP SCH ×2 (08:57→23:30)
[2018-10-30] MEDS: VANCOMYCIN 1GM/NS 250 ML 250 ML IV SCH (09:30)
--- NOTE | 2018-10-30 09:37 | NUR ---
CALLED DR. PHILIP TO NOTIFY OF CRITICAL VANC TROUGH OF 18.4 AND TO SEE IF HE WANTS TO HOLD AM DOSE, NO ANSWER, LVM.
--- NOTE | 2018-10-30 09:47 | NUR ---
PER DR. PHILIP HOLD AM DOSE, WILL ADJUST DOSE WHEN HE ROUNDS.
--- NOTE | 2018-10-30 11:25 | NUR ---
CM TO BEDSIDE TO DISCUSS IMM MEDICARE PATIENT'S RIGHTS. QUESTIONS ANSWERED AND SIGNATURE OBTAINED. PATIENT VERBALIZED UNDERSTANDING OF DISCUSSION. COPY OF LETTER TO PATIENT'S CHART AND IN TRANSITION OF CARE FOLDER AT PATIENT'S BEDSIDE.
[2018-10-30 12:50] LABS: HYPOCHROMASIA SLIGHT; LYMPHOCYTES % (MANUAL) 29 % (19-48); METAMYELOCYTES % (MANUAL) 3 % (0-0); MONOCYTES % (MANUAL) 16 % (3.4-9.0); MYELOCYTES % (MANUAL) 5 % (0-0); NEUTROPHILS % (MANUAL) 47 % (40-74); PLATELET ESTIMATE ADEQUATE; PLATELET MORPHOLOGY COMMENT NORMAL; RBC MORPHOLOGY COMMENT ABNORMAL
[2018-10-30 12:51] LABS: ANISOCYTOSIS MODERATE
[2018-10-30] MEDS ORDERED: POTASSIUM CHLORIDE 10MEQ EA PO NR (17:00)
--- NOTE | 2018-10-30 19:15 | NUR ---
patient received awake, alert, lying quietly in bed. no signs of pain/discomfort noted. ivf continue to infuse without difficulty. patient turned and repositioned for comfort. pm assessment complete. bed alarm on and side rails up x 3 for patient safety.
--- NOTE | 2018-10-30 19:34 | NUR ---
REPORT GIVEN TO ONCOMING NURSE, WALKING ROUNDS DONE. PATIENT IS RESTING IN BED, NO ACUTE DISTRESS NOTED. NO S/S OF PAIN NOTED. CALL LIGHT WITHIN REACH. BED IN THE LOWEST POSITION.
[2018-10-31] VITALS (10 sets, daily range): BP systolic 113–149; BP diastolic 55–83
[2018-10-31] MEDS: DEXTROSE 5%/0.45% SOD CHL 1,000 ML IV SCH ×2 (00:20→08:20)
--- NOTE | 2018-10-31 06:54 | NUR ---
RECEIVED PATIENT RESTING IN BED. NO ACUTE DISTRESS NOTED. NO S/S OF PAIN NOTED. CALL LIGHT WITHIN REACH. BED IN THE LOWEST POSITION.
[2018-10-31] MEDS: QUETIAPINE FUMARATE 100 MG TAB PO SCH ×3 (08:06→20:34)
[2018-10-31] MEDS: ZINC OXIDE / BALSAM PERU 30 GM TUBE TOP SCH ×2 (08:20→21:00)
[2018-10-31] MEDS: VANCOMYCIN HCL 1.25 GM in SODIUM CHLORIDE 0.9% 250ML 250 ML IV SCH (08:20)
--- NOTE | 2018-10-31 19:00 | NUR ---
patient received awake, alert, lying quietly in bed. respirations even and unlabored. ivf continue to infuse without difficulty. pm assessment complete. bed low, side rails up x 3 and bed alarm on for safety. no signs of pain/discomfort noted. close monitoring continues.
--- NOTE | 2018-10-31 19:09 | NUR ---
REPORT GIVEN TO ONCOMING NURSE, WALKING ROUNDS DONE. PATIENT IS RESTING IN BED. NO ACUTE DISTRESS NOTED. CALL LIGHT WITHIN REACH. BED IN THE LOWEST POSITION. BED ALARM ON.
--- NOTE | 2018-11-01 | NUR ---
patient lying quietly in bed with his eyes open. no c/o pain oted. patient in able to turn self from side to side. ivf continue to infuse without difficulty.
[2018-11-01 05:06] VITALS: BP 140/82
[2018-11-01 05:11] LABS: BASOPHILS # (AUTO) 0.1 (0.0-0.1); BASOPHILS % 0.5 % (0.0-1.0); EOSINOPHILS % 0.2 % (0.0-6.0); HEMATOCRIT 32.2 % (38.2-49.6); HEMOGLOBIN 10.4 g/dL (14.0-18.0); LYMPHOCYTES # (AUTO) 3.7 (1.0-3.2); LYMPHOCYTES % 27.9 % (18.0-39.1); MEAN CORPUSCULAR HEMOGLOBIN 30.1 pg (28-32); MEAN CORPUSCULAR HGB CONC 32.3 g/dL (31-35); MEAN CORPUSCULAR VOLUME 93.3 fL (81-99); MONOCYTES # (AUTO) 3.7 (0.2-0.8); MONOCYTES % 27.7 % (4.4-11.3); NEUTROPHILS # (AUTO) 5.3 (2.1-6.9); NEUTROPHILS % 39.4 % (38.7-80.0); PLATELET COUNT 309 x10e3/uL (140-360); RED BLOOD COUNT 3.45 x10e6/uL (4.3-5.7); RED CELL DISTRIBUTION WIDTH 17.6 % (11.7-14.4)
[2018-11-01 05:33] LABS: ANION GAP 10.4 mmol/L (8-16); BLOOD UREA NITROGEN 9 mg/dL (7-26); BUN/CREATININE RATIO 11 (6-25); CALCIUM 8.7 mg/dL (8.4-10.2); CARBON DIOXIDE 24 mmol/L (22-29); CHLORIDE 106 mmol/L (98-107); CREATININE, SERUM 0.82 mg/dL (0.72-1.25); EST GLOMERULAR FILTRATION RATE > 60 ML/MIN (60-); GLUCOSE 183 mg/dL (74-118); POTASSIUM 3.4 mmol/L (3.5-5.1); SODIUM 137 mmol/L (136-145)
[2018-11-01] MEDS: VANCOMYCIN HCL 1.25 GM in SODIUM CHLORIDE 0.9% 250ML 250 ML IV SCH (06:31)
--- NOTE | 2018-11-01 06:58 | NUR ---
RECEIVED PATIENT RESTING IN BED, RESPIRATIONS EVEN AND UNLABORED. NO ACUTE DISTRESS NOTED. CALL LIGHT WITHIN REACH. BED IN THE LOWEST POSITION. BED ALARM ON.
[2018-11-01 07:52] VITALS: BP 143/74
[2018-11-01] MEDS: QUETIAPINE FUMARATE 100 MG TAB PO SCH ×3 (08:55→20:00)
[2018-11-01] MEDS: ZINC OXIDE / BALSAM PERU 30 GM TUBE TOP SCH ×2 (08:55→20:01)
[2018-11-01 09:37] VITALS: BP 143/74
[2018-11-01 11:43] VITALS: BP 123/58
[2018-11-01 16:04] VITALS: BP 130/88
[2018-11-01] MEDS: DEXTROSE 5%/0.45% SOD CHL 1,000 ML IV SCH ×2 (17:00→20:02)
[2018-11-01] MEDS ORDERED: POTASSIUM CHLORIDE 10MEQ EA PO NR (17:00)
--- NOTE | 2018-11-01 19:06 | NUR ---
REPORT GIVEN FOR ONCOMING NURSE, WALKING ROUNDS DONE. PATIENT IS RESTING IN BED. NO ACUTE DISTRESS NOTED, NO S/S OF PAIN. CALL LIGHT WITHIN REACH. BED IN THE LOWEST POSITION. BED ALARM ON.
[2018-11-01 20:00] VITALS: BP 114/58
[2018-11-02] VITALS (8 sets, daily range): BP systolic 103–145; BP diastolic 71–85
--- NOTE | 2018-11-02 07:30 | NUR ---
RECD PT IN BED ,NO DSITRESSNTOED,NO S/S DISCOMFORT.
[2018-11-02] MEDS: VANCOMYCIN HCL 1.25 GM in SODIUM CHLORIDE 0.9% 250ML 250 ML IV SCH (08:00)
[2018-11-02] MEDS: QUETIAPINE FUMARATE 100 MG TAB PO SCH ×3 (08:48→21:33)
[2018-11-02] MEDS: ZINC OXIDE / BALSAM PERU 30 GM TUBE TOP SCH ×2 (09:00→21:33)
--- NOTE | 2018-11-02 14:17 | NUR ---
SPOKE WITH DR KHAN RE; DISCHARGE,STATED WILL SEE PT THIS AFTERNOON.
--- NOTE | 2018-11-02 18:13 | NUR ---
PT IN BED RESTING ,NO DISTRESS NOTED,
--- NOTE | 2018-11-02 19:15 | NUR ---
Completed bedside rounds with morning nurse. Pt alert to name. Lying in bed HOB 30 degrees. Denies pain at this time. Left upper arm PICC, patent, D5 1/2NS @20ml/hr. Call weller within reach. Will continue to monitor. Bed alarm on.
[2018-11-03] VITALS: BP 124/80
[2018-11-03] MEDS: DEXTROSE 5%/0.45% SOD CHL 1,000 ML IV SCH (06:00)
--- NOTE | 2018-11-03 06:50 | NUR ---
Pt alert and orient. Lying in bed HOB 30 degrees. Denies pain. No distress noted.
[2018-11-03 07:13] VITALS: BP 128/75
--- NOTE | 2018-11-03 07:30 | NUR ---
RECD PT IN BED SLEEPING NO S/S DISCOMFORRT.
[2018-11-03] MEDS: QUETIAPINE FUMARATE 100 MG TAB PO SCH ×2 (08:31→15:00)
[2018-11-03 08:58] VITALS: BP 132/78
[2018-11-03] MEDS ORDERED: LIDOCAINE HCL 1% LOCAL INJ 20 ML VIAL ONE (09:55)
--- NOTE | 2018-11-03 10:02 | NUR ---
pt transported to [facility] via bed
--- NOTE | 2018-11-03 11:35 | Diagnostic Imaging Report ---
EXAMINATION: Fluoroscopically-guided lumbar puncture HISTORY: Altered mental status TECHNIQUE: medication: None. anesthesia: 1% lidocaine needle: 22 gauge fluoro time: 0.6 min DAP: 7.39 mGy PROCEDURE: Informed consent was obtained from the legal power of cattle dealer. The back was prepped and draped in the usual sterile manner, and then 1% lidocaine was infiltrated in the skin. The spinal needle was advanced through the L5-S1 interspace until clear, colorless CSF was obtained. Approximately 22 mL of fluid was removed and sent to the laboratory for tests ordered by the referring physician. The patient tolerated the procedure well and was transferred to the radiology recovery area. FINDINGS: CSF: Clear, colorless. IMPRESSION: Successful fluoroscopy-guided lumbar puncture. Signed by: Dr. Mulugeta Castaneda DO on 11/03/2018 11:32 AM
[2018-11-03 11:56] LABS: APPEARANCE,CSF CLEAR (CLEAR); COLOR,CSF COLORLESS (COLORLESS); TUBE NUMBER 3; WHITE BLOOD CELL,CSF 3 cells/uL (0-5)
[2018-11-03] MEDS ORDERED: VANCOMYCIN HCL 1.25 GM in SODIUM CHLORIDE 0.9% 250ML 250 ML IV SCH (12:00)
[2018-11-03 12:19] VITALS: BP 121/73
[2018-11-03 12:30] LABS: TOTAL PROTEIN,CSF 39.9 mg/dL (15-40)
--- NOTE | 2018-11-03 13:28 | NUR ---
SPOKE WIT DR KHAN OK TO DISCHAGE TO [facility] IF OK WITH DR EARZO.
[2018-11-03] MEDS ORDERED: ONDANSETRON HCL 4 MG ORAL DISINTEGRATING TAB PO PRN (14:30)
--- NOTE | 2018-11-03 16:00 | NUR ---
REPORT CALLED TO ELIAS,
[2018-11-03 16:09] VITALS: BP 121/77
[2018-11-03] MEDS: ZINC OXIDE / BALSAM PERU 30 GM TUBE TOP SCH (16:59)
--- NOTE | 2018-11-03 17:01 | NUR ---
PT IN BED RESTING NO DISTRES NTOED.
--- NOTE | 2018-11-03 18:00 | NUR ---
pt discharged to [facility],transported by [facility] ambulance,picc line in place,
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
== END 2018-11-03 18:17 | DRG 871 ==
LOC: ER 11:49 → ERHOLD 15:04 → MED/SURG3 17:27 → OBSVTOIN 10-30 16:47
PROVIDERS: ADMIT Internal Medicine; ATTEND Internal Medicine
PROC: 02HV33Z Insertion of Infusion Device into Superior Vena Cava, Percutaneous Approach (ICD-10-PCS; principal; 2018-10-29)
PROC: 009U3ZX Drainage of Spinal Canal, Percutaneous Approach, Diagnostic (ICD-10-PCS; 2018-10-29)
DX: A41.9 Sepsis, unspecified organism (principal); J18.9 Pneumonia, unspecified organism; R65.21 Severe sepsis with septic shock; G93.49 Other encephalopathy; I95.9 Hypotension, unspecified; E78.5 Hyperlipidemia, unspecified; B96.1 Klebsiella pneumoniae [K. pneumoniae] as the cause of diseases classified elsewhere; F20.9 Schizophrenia, unspecified; Q54.9 Hypospadias, unspecified; D72.823 Leukemoid reaction; H54.7 Unspecified visual loss; Z98.2 Presence of cerebrospinal fluid drainage device; L27.1 Localized skin eruption due to drugs and medicaments taken internally; T36.0X5A Adverse effect of penicillins, initial encounter
CPT/HCPCS: 36415; 36569; 62270; 71045; 74177; 74470; 80048; 80053; 80164; 80202; 81001; 82784; 82945; 82948; 83605; 84157; 85025; 87040; 87070; 87071; 87086; 87186; 87205; 89051; 93005; 93306; 97139; 99284; G0378; J2001; J3370; J7030; J7050; Q9967